=== PATIENT | male | born 1940 | race Caucasian/White ===

== ENCOUNTER → 2017-06-04 | Day surgery (SDC) | payer MEDICARE ==
[~2017-06-04] MED LIST: GENTAMICIN SULFATE 80 MG/2 ML VIAL ONE; LACTATED RINGER'S 1000 ML INJ 1,000 ML ONE; MIDAZOLAM HCL 2 MG/2 ML VIAL ONE; ONDANSETRON HCL 4 MG/2 ML VIAL IV PUSH ONE; PROPOFOL 200 MG/20 ML AMP IV ONE; SODIUM CHLORIDE 0.9% SOLN 100 ML BAG IV ONE
--- NOTE | 2017-06-04 08:49 | TN ---
cc: NICHO LAMAS M.D. DATE OF SURGERY 06/04/2017 PREOPERATIVE DIAGNOSIS Bladder tumor (ICD-10 code D41.4). POSTOPERATIVE DIAGNOSIS Bladder tumor (ICD-10 code D41.4). POSTOPERATIVE DIAGNOSIS Transurethral resection of bladder tumor (TURBT) (CPT code 10331). INDICATIONS Mr. 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 He presents now for definitive treatment. FINDINGS The pendulous and bulbous urethra show multiple mild to moderate strictures throughout. 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 At about the 3 o'clock position just inside the bladder neck is an approximately 5 mm papillary tumor. No additional abnormalities are seen in that area. The ureteral orifice are slit-like and normal size, shape and position, effluxing clear urine. There are no additional tumors, no suspicious mucosa. There is some moderate trabeculation with small diverticula but no additional tumors or lesions or calcifications identified. PROCEDURE The procedure as well as risks and benefits were explained to the patient and informed consent was obtained. The patient was taken to the major operative theater where he was placed in supine position. The patient was identified as well as the operative site. A universal time-out was formed in standard fashion. At this time general anesthetic and prophylactic intravenous antibiotics consisting of gentamicin 80 mg was administered. After adequate anesthetic, he was placed in low dorsal lithotomy position, prepped and draped the usual sterile fashion. Attempts at passing a 22.5 obturator and sheath into the meatus were unsuccessful due to some mild narrowing there so serial dilation of the meatus was performed using Godfrey sounds from 16-Frisian to 26-Frisian without difficulty and then the 22.5 Frisian cystoscope with a 30-degree lens was inserted with minimal difficulty into the bladder. At that time the bladder was systematically surveyed using both a 30 and 70-degree lens. The tumor was only really visible easily with the 70-degree lens cystoscope so a decision was made to perform flexible resection of this tumor using an Aberran's Bridge. Then using the 70-degree lens scope and the Alberran's bridge, flexible biopsy forceps was passed and the tumor as well as the base the tumor which were sent separately were resected. A Bugbee probe was used to fulgurate the tumor site as well as some adjacent normal-appearing tissue. After confirming hemostasis, the bladder was decompressed, the scope removed. The patient tolerated the procedure well and emerged from anesthetic without difficulty, transferred to the recovery room in stable condition to be discharged home when criteria is met. There are no obvious complications. MD JASON Servin/BETH /8:28 AM /8:36 AM
== END | disposition home or self-care (01) ==
LOC: ESDC 06:34
PROVIDERS: ATTEND Urology
DX: D41.4 Neoplasm of uncertain behavior of bladder (principal)
CPT/HCPCS: 00910; 52224; 88300; 88305; J1580; J2250; J2405; J3010; J7120; 88307